=== PATIENT | female | born 1990 | race Caucasian/White ===

== ENCOUNTER 2021-10-10 00:01 | Emergency (ER) | payer BC, MEDICAID ==
[2021-10-10] MEDS ORDERED: Lidocaine 1% 20 ML MDV INJECT ONE (01:25)
[2021-10-10] MEDS ORDERED: Lidocaine 1% 10 ML MDV INJECT ONE (01:35)
[2021-10-10] MEDS ORDERED: Diphtheria,Pertussis(Acell),Tetanus Vaccine 0.5 ML Syringe IM ONE (02:32)
== END 2021-10-10 02:54 | disposition home or self-care (01) ==
LOC: JD.ED 00:01
DX: S41.112A Laceration without foreign body of left upper arm, initial encounter (principal); Z86.16 Personal history of COVID-19; W26.8XXA Contact with other sharp object(s), not elsewhere classified, initial encounter
CPT/HCPCS: 12002; 99282

== ENCOUNTER 2022-01-29 18:02 | Inpatient (IN) | payer MEDICAID ==
[~2022-01-29 18:02] MED LIST: Lidocaine 1% 10 ML MDV ONE
[2022-01-29] MEDS ORDERED: Lidocaine 1% 50 ML MDV INJECT PRN (18:16)
[2022-01-29] MEDS ORDERED: Calcium Carbonate 500 MG Tab.Chew PO PRN (18:16)
[2022-01-29] MEDS ORDERED: Ondansetron 4 MG/2 ML SDV IVPUSH PRN (18:16)
[2022-01-29] MEDS ORDERED: Sodium Chloride 0.9% 10 ML Syringe FLUSH PRN (18:16)
[2022-01-29] MEDS ORDERED: Nalbuphine HCl 10 MG/ 1ML Amp IVPUSH PRN (18:16)
[2022-01-29] MEDS ORDERED: Oxytocin/Lactated Ringers 10 UNIT/1,000 ML BAG IV SCH ×2 (18:30)
[2022-01-29] MEDS ORDERED: ePHEDrine 50 MG/ML SDV IVPUSH PRN (18:33)
[2022-01-29] MEDS ORDERED: Bupivacaine/fentaNYL/NS 100 ML Bag EPIDUR PRN (18:33)
[2022-01-29] MEDS ORDERED: fentaNYL 100 MCG/2 ML SDV EPIDUR PRN (18:33)
[2022-01-29] MEDS ORDERED: diphenhydrAMINE 50 MG/ML SDV IVPUSH PRN (18:33)
[2022-01-29] MEDS: Lactated Ringers 1,000 ML IV SCH ×2 (18:37→20:44)
[2022-01-29] MEDS ORDERED: Acetaminophen 325 MG Tab PO PRN (22:30)
[2022-01-29] MEDS ORDERED: Benzocaine/Menthol 20%-0.5% Spray 78 GM Cannister TOP PRN (22:30)
[2022-01-29] MEDS ORDERED: Witch Hazel Medicated Pads 40/Jar TOP PRN (22:30)
[2022-01-30] MEDS: Ibuprofen 600 MG Tab PO PRN ×4 (00:02→22:56)
[2022-01-31] MEDS: Ibuprofen 600 MG Tab PO PRN (08:12)
== END 2022-01-31 14:00 | disposition home or self-care (01) | DRG 807 ==
LOC: JD.OBCHECK 18:02 → JD.OB 18:03 → JD.OBCHECK 18:44 → OBSVTOIN 21:46 → JD.OB 21:47
PROVIDERS: ADMIT Obstetrics & Gynecology; ATTEND Obstetrics & Gynecology
PROC: 10E0XZZ Delivery of Products of Conception, External Approach (ICD-10-PCS; principal; 2022-01-29)
PROC: 3E0R3BZ Introduction of Anesthetic Agent into Spinal Canal, Percutaneous Approach (ICD-10-PCS; 2022-01-29)
PROC: 00HU33Z Insertion of Infusion Device into Spinal Canal, Percutaneous Approach (ICD-10-PCS; 2022-01-29)
DX: O70.1 Second degree perineal laceration during delivery (principal); Z37.0 Single live birth; Z3A.39 39 weeks gestation of pregnancy
CPT/HCPCS: 01967; 36415; 51702; 59025; 59409; 80306; 82565; 83615; 84112; 84450; 84460; 84520; 84550; 85025; 86592; 87641; A9270-GY; J2590; J3010; J7120